=== PATIENT | female | born 1960 | race Caucasian/White ===

== ENCOUNTER → 2021-09-10 | Outpatient (CLI) | payer OTHER | LOC: RAD 14:21 | DX: M25.561 Pain in right knee (principal) | CPT/HCPCS: 73560 ==

== ENCOUNTER → 2021-12-28 | Outpatient (CLI) | payer OTHER | LOC: MRI 12:40 | DX: R27.0 Ataxia, unspecified (principal); G43.009 Migraine without aura, not intractable, without status migrainosus; R55 Syncope and collapse; R42 Dizziness and giddiness | CPT/HCPCS: 70553; A9577 ==